=== PATIENT | male | born 1950 | race African-American/Black ===

== ENCOUNTER 2020-10-01 17:51 | Inpatient (IN) | payer MEDICARE, MEDICAID ==
[~2020-10-01] VITALS: Ht 167.6 cm; Wt 118.1 kg
[2020-10-01] MEDS ORDERED: KETOROLAC 30MG/ML VIAL IV STA (18:32)
[2020-10-01] MEDS ORDERED: SODIUM CHLORIDE 0.9% 1,000 ML IV ONE ×2 (18:45→19:45)
[2020-10-01 18:52] LABS: BASOPHILS % 0.5 % (0.0-2.0); EOSINOPHILS % 0.6 % (0.0-5.0); HEMATOCRIT. 45.1 % (42.0-52.0); HEMOGLOBIN. 14.4 g/dL (14.0-18.0); LYMPHOCYTES % 23.4 % (20.0-50.0); MEAN CORPUSCULAR HEMOGLOBIN 23.8 pg (28.0-32.0); MEAN CORPUSCULAR VOLUME 74.3 fL (80.0-94.0); MEAN PLATELET VOLUME 10.7 fl (7.4-10.4); MONOCYTES % 6.5 % (2.0-8.0); PLATELET 166 x1000/uL (130-400); RED BLOOD CELL COUNT 6.07 mill/uL (4.7-6.1); RED CELL DISTRIBUTION WIDTH 14.6 % (11.6-14.6)
[2020-10-01 18:55] LABS: CLARITY URINE CLEAR (CLEAR); COLOR URINE YELLOW (YELLOW); KETONES URINE TRACE (NEGATIVE); LEUKOCYTE ESTERASE URINE NEGATIVE (NEGATIVE); NITRITE URINE NEGATIVE (NEGATIVE); OCCULT BLOOD URINE TRACE (NEGATIVE); PROTEIN URINE NEGATIVE (NEGATIVE); SPECIFIC GRAVITY URINE 1.029 (1.005-1.030); UROBILINOGEN URINE 0.2 E.U./dL (0.2-1.0)
[2020-10-01 18:57] LABS: CHLORIDE 98 mEq/L (98-107)
[2020-10-01] MEDS ORDERED: INSULIN REGULAR (DRIP) 100 UNITS in SODIUM CHLORIDE 0.9% 99 ML IV ONE (19:45)
[2020-10-01] MEDS ORDERED: INSULIN REGULAR (DRIP) 100 UNITS in SODIUM CHLORIDE 0.9% 99 ML IV NR (20:15)
[2020-10-01] MEDS ORDERED: MAGNESIUM/ALUMINUM HYDROXIDE/SIMETHICONE 30ML UDC PO PRN (21:45)
[2020-10-01] MEDS ORDERED: HYDROMORPHONE HCL/PF 2MG/ML CPJ IV PRN (21:45)
[2020-10-01] MEDS ORDERED: INSULIN REGULAR (DRIP) 100 UNITS in SODIUM CHLORIDE 0.9% 100 ML IV SCH (21:45)
[2020-10-01] MEDS ORDERED: ACETAMINOPHEN 325MG TABLET PO PRN (21:45)
[2020-10-01] MEDS ORDERED: ONDANSETRON HCL 4MG/2ML INJ IV PRN (21:45)
[2020-10-01] MEDS ORDERED: LEVOFLOXACIN 500MG PREMIX 100 ML IV SCH (22:00)
[2020-10-01] MEDS ORDERED: DEXTROSE 50% WATER 50ML SYRINGE IV PRN ×2 (22:00)
[2020-10-01] MEDS: METRONIDAZOLE 500 MG PREMIX 100 ML IV SCH (22:33)
[2020-10-01] MEDS: PANTOPRAZOLE SODIUM 40 MG/VIAL IV SCH ×2 (22:36→23:59)
[2020-10-01] MEDS: BLOOD SUGAR DIAGNOSTIC STRIP TEST SCH (23:00)
[2020-10-01 23:13] VITALS: BP 142/79
[2020-10-01 23:26] VITALS: BP 146/92
[2020-10-01] MEDS ORDERED: METF-873 MT (23:26)
[2020-10-01] MEDS: SODIUM CHLORIDE 0.9% 1,000 ML IV SCH (23:48)
[2020-10-01 23:57] VITALS: BP 160/93
[2020-10-02] VITALS (47 sets, daily range): BP systolic 129–174; BP diastolic 52–118
[2020-10-02] MEDS ORDERED: INSULIN REGULAR (DRIP) 100 UNITS in SODIUM CHLORIDE 0.9% 100 ML IV SCH ×2
[2020-10-02] MEDS: BLOOD SUGAR DIAGNOSTIC STRIP TEST SCH ×16 (01:00→21:38)
[2020-10-02] MEDS: METRONIDAZOLE 500 MG PREMIX 100 ML IV SCH ×3 (05:43→22:32)
[2020-10-02 05:47] LABS: CHLORIDE 111 mEq/L (98-107)
[2020-10-02 05:48] LABS: BASOPHILS % 0.7 % (0.0-2.0); EOSINOPHILS % 1.5 % (0.0-5.0); HEMATOCRIT. 43.4 % (42.0-52.0); HEMOGLOBIN. 13.8 g/dL (14.0-18.0); LYMPHOCYTES % 34.5 % (20.0-50.0); MEAN CORPUSCULAR HEMOGLOBIN 23.4 pg (28.0-32.0); MEAN CORPUSCULAR VOLUME 73.4 fL (80.0-94.0); MEAN PLATELET VOLUME 9.7 fl (7.4-10.4); MONOCYTES % 7.2 % (2.0-8.0); NEUTROPHILS % 56.1 % (40.0-76.0); PLATELET 157 x1000/uL (130-400); RED BLOOD CELL COUNT 5.91 mill/uL (4.7-6.1); RED CELL DISTRIBUTION WIDTH 14.4 % (11.6-14.6)
[2020-10-02] MEDS ORDERED: DOBUTAMINE 250MG PREMIX 250 ML IV ONE (06:41)
[2020-10-02] MEDS: CLONIDINE 0.1MG TABLET PO PRN ×2 (06:54→16:40)
[2020-10-02] MEDS ORDERED: DEXTROSE 50% WATER 50ML SYRINGE IV PRN (07:15)
[2020-10-02] MEDS: INSULIN LISPRO 100 UNITS/ML SUBCUT SCH ×4 (08:20→21:40)
[2020-10-02] MEDS ORDERED: POTASSIUM CHLORIDE INJ 40 MEQ in DEXT 5% WATER 250 ML IV SCH (09:00)
[2020-10-02] MEDS: ENOXAPARIN 30MG/0.3ML SYR SUBCUT SCH ×3 (09:05→21:39)
[2020-10-02] MEDS: INSULIN GLARGINE UD 100 UNITS/ML SYR SUBCUT SCH ×2 (10:15→21:40)
[2020-10-02] MEDS: SODIUM CHLORIDE 0.9% 1,000 ML IV SCH ×2 (10:48→22:33)
[2020-10-02] MEDS ORDERED: POTASSIUM CHLORIDE 20MEQ TABLET SR PO SCH (13:00)
[2020-10-02] MEDS: AMLODIPINE 10MG TABLET PO SCH (15:44)
[2020-10-02] MEDS: HYDRALAZINE HCL 25MG TABLET PO SCH (21:38)
[2020-10-02] MEDS ORDERED: LEVOFLOXACIN 500MG PREMIX 100 ML IV SCH (22:00)
[2020-10-03] VITALS (31 sets, daily range): BP systolic 101–184; BP diastolic 39–102
[2020-10-03] MEDS: METRONIDAZOLE 500 MG PREMIX 100 ML IV SCH (05:54)
[2020-10-03 06:08] LABS: BASOPHILS % 0.8 % (0.0-2.0); EOSINOPHILS % 1.9 % (0.0-5.0); HEMATOCRIT. 42.2 % (42.0-52.0); HEMOGLOBIN. 13.3 g/dL (14.0-18.0); LYMPHOCYTES % 36.1 % (20.0-50.0); MEAN CORPUSCULAR HEMOGLOBIN 23.1 pg (28.0-32.0); MEAN CORPUSCULAR VOLUME 73.2 fL (80.0-94.0); MEAN PLATELET VOLUME 9.7 fl (7.4-10.4); MONOCYTES % 6.4 % (2.0-8.0); NEUTROPHILS % 54.8 % (40.0-76.0); PLATELET 142 x1000/uL (130-400); RED BLOOD CELL COUNT 5.76 mill/uL (4.7-6.1); RED CELL DISTRIBUTION WIDTH 14.6 % (11.6-14.6)
[2020-10-03 06:15] LABS: CHLORIDE 111 mEq/L (98-107)
[2020-10-03] MEDS: PANTOPRAZOLE SODIUM 40 MG/VIAL IV SCH (08:29)
[2020-10-03] MEDS: HYDRALAZINE HCL 25MG TABLET PO SCH ×2 (08:29→17:59)
[2020-10-03] MEDS: BLOOD SUGAR DIAGNOSTIC STRIP TEST SCH ×4 (08:29→21:00)
[2020-10-03] MEDS: ENOXAPARIN 30MG/0.3ML SYR SUBCUT SCH ×2 (08:30→21:52)
[2020-10-03] MEDS: INSULIN LISPRO 100 UNITS/ML SUBCUT SCH ×4 (08:31→21:53)
[2020-10-03] MEDS: AMLODIPINE 10MG TABLET PO SCH (08:32)
[2020-10-03] MEDS: SODIUM CHLORIDE 0.9% 1,000 ML IV SCH (10:54)
[2020-10-03] MEDS: INSULIN GLARGINE UD 100 UNITS/ML SYR SUBCUT SCH (10:54)
[2020-10-03] MEDS ORDERED: INSULIN GLARGINE UD 100 UNITS/ML SYR SUBCUT SCH (22:00)
[2020-10-04] VITALS: BP 142/90
[2020-10-04] MEDS: HYDRALAZINE HCL 25MG TABLET PO SCH ×2 (02:31→08:31)
[2020-10-04 04:00] VITALS: BP 144/79
[2020-10-04] MEDS: BLOOD SUGAR DIAGNOSTIC STRIP TEST SCH ×2 (06:28→12:20)
[2020-10-04 08:00] VITALS: BP 155/76
[2020-10-04 08:16] LABS: CHLORIDE 109 mEq/L (98-107)
[2020-10-04] MEDS: AMLODIPINE 10MG TABLET PO SCH (08:31)
[2020-10-04] MEDS: INSULIN LISPRO 100 UNITS/ML SUBCUT SCH ×2 (08:34→12:40)
[2020-10-04] MEDS: ENOXAPARIN 30MG/0.3ML SYR SUBCUT SCH (08:35)
[2020-10-04] MEDS: PANTOPRAZOLE SODIUM 40 MG/VIAL IV SCH (09:19)
[2020-10-04] MEDS ORDERED: INSULIN GLARGINE UD 100 UNITS/ML SYR SUBCUT SCH ×3 (12:00→22:00)
[2020-10-04 13:22] VITALS: BP 155/76
== END 2020-10-04 15:20 | disposition home or self-care (01) | DRG 420 ==
LOC: ER 18:24 → EDBEDREQTM 20:37 → EDBEDREQ 20:37 → ENRESERV 22:21 → CVICU 23:42 → 6WST 10-03 14:17
PROVIDERS: ADMIT Hospitalist; ATTEND Hospitalist
DX: E11.00 Type 2 diabetes mellitus with hyperosmolarity without nonketotic hyperglycemic-hyperosmolar coma (NKHHC) (principal); E11.65 Type 2 diabetes mellitus with hyperglycemia; I11.9 Hypertensive heart disease without heart failure; K57.92 Diverticulitis of intestine, part unspecified, without perforation or abscess without bleeding; I16.0 Hypertensive urgency; Z79.899 Other long term (current) drug therapy; Z82.49 Family history of ischemic heart disease and other diseases of the circulatory system; Z87.891 Personal history of nicotine dependence
CPT/HCPCS: 36415; 71045; 74176; 80053; 81003; 82010; 82962; 83036; 84484; 85025; 93005; 93970; 99291; C9113; J1250; J1650; J1815; J1885; J1956; J3480; J3490; J7030; J7050; J7060